=== PATIENT | female | born 1995 | race Caucasian/White ===

== ENCOUNTER 2018-08-12 06:18 | Emergency (ER) | payer OTHER ==
[2018-08-12] MEDS ORDERED: NS 1,000 ML IV ONE (06:58)
[2018-08-12] MEDS ORDERED: KETOROLAC 30 MG/1 ML SDV IVP ONE (06:58)
[2018-08-12] MEDS ORDERED: ONDANSETRON 4 MG/2 ML VIAL IVP ONE (06:58)
--- NOTE | 2018-08-12 07:05 | EDPHY ---
H & P Stated Complaint: fainted, lip lac Time Seen by Provider: 08/12/18 06:42 - Personal History LMP (Females 10-55): 1-7 Days Ago Current Tetanus Diphtheria and Acellular Pertussis (TDAP): Yes - Medical/Surgical History Hx Asthma: No Hx Chronic Respiratory Disease: No Hx Diabetes: No Hx Cardiac Disease: No Hx Renal Disease: No Hx Cirrhosis: No Hx Alcoholism: No Hx HIV/AIDS: No Hx Splenectomy or Spleen Trauma: No Other PMH: enies - Social History Smoking Status: Never smoked Constitutional: Initial Vital Signs Temperature (C) 36.3 C 08/12/18 06:22 Heart Rate 77 08/12/18 06:22 Respiratory Rate 20 08/12/18 06:22 Blood Pressure 96/65 L 08/12/18 06:22 O2 Sat (%) 99 08/12/18 06:22 O2 Delivery Mode Nasal Cannula Allergies/Adverse Reactions: No Known Allergies Allergy (Unverified 08/12/18 06:21) Home Medications: Medication Instructions Recorded Doxycycline Calcium 08/12/18 Medical Decision Making - Diagnostics Imaging Results: Imaging Impressions Abdomen/Pelvis Ultrasound 08/12/18 06:58 Impression: Normal renal ultrasound. Findings discussed with Jeffrey Garrett MD 08/12/2018 at 8:27. Imaging: Discussed imaging studies w/ crew caller Radiologist ED Course/Re-evaluation: CHIEF COMPLAINT: Syncope, lip laceration HISTORY OF PRESENT ILLNESS: This patient is a healthy 23 year old female who presents today with facial lacerations secondary to a syncopal episode and fall earlier today. She woke this morning with left flank pain. She went to the restroom and while sitting on the toilet, she felt lightheaded and nauseous. She got up quickly to vomit, and the next thing she remembers is waking on the floor. She was able to get up and her roommate brought her here today for evaluation. She struck her face when she fell and sustained a laceration through the center of her lip through and through. She denies headache or vomiting. She does endorse some neck pain. Her left flank pain is ongoing. She denies fever, chest pain, shortness of breath, urinary complaints including dysuria or hematuria. REVIEW OF SYSTEMS: A comprehensive 10 system review of systems is otherwise negative aside from elements mentioned in the history of present illness and medical decision making. PHYSICAL EXAM: HR, BP, O2 Sat, RR. Temp noted General Appearance: Alert, well hydrated, appropriate, and non-toxic appearing. Head: Laceration through the center of the top lip involving the mucosa and leonor borer, extending internally to the gum line. 1cm laceration to columnella. Small abrasion lateral to left eye. Eyes: Pupils equal, round, reactive to light and accommodation, EOMI, no trauma , no injection. Ears: Clear bilaterally, no perforation, normal landmarks Nose: Dried blood in right nares. No evidence of septal hematoma. Throat: There is no erythema or exudates, no lesions, normal tonsils, mucus membranes moist. Neck: Supple, nontender, no lymphadenopathy. Respiratory: No retractions, no distress, no wheezes, and no accessory muscle use. Lungs are clear to auscultation bilaterally. Cardiovascular: Regular rate and rhythm, no murmurs, rubs, or gallops. Bilateral carotid, radial, dorsalis pedis, and posterior tibial pulses intact. Good capillary refill all extremities. Gastrointestinal: Abdomen is soft, nontender, non-distended, no masses, no rebound, no guarding, no peritoneal signs. Musculoskeletal: Normal active ROM of all extremities, atraumatic. Neurological: Alert, appropriate, and interactive. The patient has normal DTRs and non-focal cranial nerves, motor, sensory, and cerebellar exam. Skin: No rashes, good turgor, no nodules on palpation. Past medical history: Denies Past surgical history: Noncontributory. Family history: Noncontributory. Social history: Friend at bedside. DIAGNOSTICS/PROCEDURES/CRITICAL CARE TIME: Procedure: Laceration repair. Verbal consent was obtained from the patient. The linear 3cm laceration on the upper lip mucosa, leonor border involved, and the 1cm laceration to the columnella were anesthetized using 1% lidocaine with epinephrine with an intraoral block of the upper lip. The wound was cleaned with standard ED protocol, draped and explored to its base with a gloved finger. The wound required extensive revision of flaps. The wound was repaired in multiple layer technique with 12 5-0 chromic gut sutures. The wound repair was complex. The procedure was performed by myself, Dr. Garrett. Procedure: Laceration repair. Verbal consent was obtained from the patient. The stellate 1cm laceration lateral to the left eye was cleaned with standard ED protocol. The wound was repaired with Dermabond. The wound repair was simple. The procedure was performed by myself, Dr. Garrett. DIFFERENTIAL DIAGNOSIS: The differential diagnosis for the patient's flank pain included but was not limited to musculoskeletal causes, kidney stone, pyelonephritis, shingles, diverticulitis, appendicitis, and aortic aneurysm. The differential diagnosis for the patient's syncope included but was not limited to vasovagal syncope, arrhythmia, dehydration, cardiogenic causes, neurogenic causes, and blood loss. MEDICAL DECISION MAKIN23 y/o female presents with facial and lip lacerations secondary to a syncopal event this morning. On exam, she has a laceration through the center of the top lip involving the mucosa and leonor borer, extending internally to the gum line. She also has a 1cm laceration to the columnella and a small abrasion lateral to her left eye. IV established, plan for I-stat chemistries. Plan to administer 30mg IV Ketorolac, 4mg IV Zofran, 1L IV NS for symptom relief. Plan for US left kidney. Plan for suture repair under standard ED protocol. See procedure note above. Administered 0.5mg IV Dilaudid for additional pain relied. 08:00 The patient tolerated the procedure well. Renal US will be completed at this time. 08:[address] Dumont, radiologist. Left renal ultrasound negative for acute processes. 08:30 Reassessed, discussed imaging and laboratory results. The patient is currently feeling well. She declines CT at this time as she is currently completely asymptomatic. Plan to discharge home in good condition. Follow up and return precautions discussed. She will return in 5 days for suture removal. UA is pending at this time, but if this is negative, plan to d/c patient as above. 09:00 UA negative for UTI. Reassessed patient, discussed additional results. She continues to feel well. Plan to discharge home as above. She will return for any worsening of condition or further concerns. She is comfortable with this plan. - Data Points Laboratory Results: Laboratory Results 08/12/18 07:00 08/12/18 Unknown 08/12/18 08/12/18 08/12/18 Unknown 08:12 07:07 WBC RBC Hgb POC Hgb 13.9 gm/dL gm/dL (12.6-16.3) Hct POC Hct 41 % % (38-47) MCV MCH MCHC RDW Plt Count MPV Neut % (Auto) Lymph % (Auto) Rolette % (Auto) Eos % (Auto) Baso % (Auto) Nucleat RBC Rel Count Absolute Neuts (auto) Absolute Lymphs (auto) Absolute Monos (auto) Absolute Eos (auto) Absolute Basos (auto) Absolute Nucleated RBC Immature Gran % Immature Gran # POC Sodium 142 mEq/L mEq/L (135-145) Sodium 140 mEq/L mEq/L (135-145) POC Potassium 3.6 mEq/L mEq/L (3.3-5.0) Potassium 4.1 mEq/L mEq/L (3.3-5.0) POC Chloride 105 mEq/L mEq/L (97-110) Chloride 105 mEq/L mEq/L (97-110) Carbon Dioxide 25 mEq/l mEq/l (22-31) Anion Gap 10 mEq/L mEq/L (6-14) POC BUN 16 mg/dL mg/dL (7-23) BUN 18 mg/dL mg/dL (7-23) Creatinine 0.9 mg/dL mg/dL (0.6-1.0) POC Creatinine 0.9 mg/dL mg/dL (0.6-1.0) Estimated GFR > 60 Glucose 115 mg/dL H mg/dL (70-100) POC Glucose 115 mg/dL H mg/dL (70-100) Calcium 9.7 mg/dL mg/dL (8.5-10.4) Total Bilirubin 3.5 mg/dL H mg/dL (0.1-1.4) Conjugated Bilirubin 0.0 mg/dL mg/dL (0.0-0.5) Unconjugated Bilirubin 3.5 mg/dL H mg/dL (0.0-1.1) AST 22 IU/L IU/L (14-46) ALT 23 IU/L IU/L (9-52) Alkaline Phosphatase 56 IU/L IU/L (38-126) Total Protein 7.2 g/dL g/dL (6.3-8.2) Albumin 4.1 g/dL g/dL (3.5-5.0) Lipase 47 IU/L IU/L (23-300) Urine Color YELLOW Urine Appearance HAZY Urine pH 5.0 (5.0-7.5) Ur Specific [place] 1.023 (1.002-1.030) Urine Protein 1+ H (NEGATIVE) Urine Ketones NEGATIVE (NEGATIVE) Urine Blood NEGATIVE (NEGATIVE) Urine Nitrate NEGATIVE (NEGATIVE) Urine Bilirubin NEGATIVE (NEGATIVE) Urine Urobilinogen NEGATIVE EU EU (0.2-1.0) Ur Leukocyte Esterase NEGATIVE (NEGATIVE) Urine RBC 1-3 /hpf /hpf (0-3) Urine WBC 1-3 /hpf /hpf (0-3) Ur Epithelial Cells TRACE /lpf /lpf (NONE-1+) Granular Casts 5-15 /lpf /lpf (0-1) Urine Mucus 3+ /lpf H /lpf (NONE-1+) Urine Glucose NEGATIVE (NEGATIVE) 08/12/18 07:00 WBC 7.02 10^3/uL 10^3/uL (3.80-9.50) RBC 4.56 10^6/uL 10^6/uL (4.18-5.33) Hgb 13.6 g/dL g/dL (12.6-16.3) POC Hgb Hct 40.2 % % (38.0-47.0) POC Hct MCV 88.2 fL fL (81.5-99.8) MCH 29.8 pg pg (27.9-34.1) MCHC 33.8 g/dL g/dL (32.4-36.7) RDW 11.9 % % (11.5-15.2) Plt Count 249 10^3/uL 10^3/uL (150-400) MPV 10.4 fL fL (8.7-11.7) Neut % (Auto) 58.0 % % (39.3-74.2) Lymph % (Auto) 33.9 % % (15.0-45.0) Rolette % (Auto) 6.4 % % (4.5-13.0) Eos % (Auto) 0.7 % % (0.6-7.6) Baso % (Auto) 0.6 % % (0.3-1.7) Nucleat RBC Rel Count 0.0 % % (0.0-0.2) Absolute Neuts (auto) 4.07 10^3/uL 10^3/uL (1.70-6.50) Absolute Lymphs (auto) 2.38 10^3/uL 10^3/uL (1.00-3.00) Absolute Monos (auto) 0.45 10^3/uL 10^3/uL (0.30-0.80) Absolute Eos (auto) 0.05 10^3/uL 10^3/uL (0.03-0.40) Absolute Basos (auto) 0.04 10^3/uL 10^3/uL (0.02-0.10) Absolute Nucleated RBC 0.00 10^3/uL 10^3/uL (0-0.01) Immature Gran % 0.4 % % (0.0-1.1) Immature Gran # 0.03 10^3/uL 10^3/uL (0.00-0.10) POC Sodium Sodium POC Potassium Potassium POC Chloride Chloride Carbon Dioxide Anion Gap POC BUN BUN Creatinine POC Creatinine Estimated GFR Glucose POC Glucose Calcium Total Bilirubin Conjugated Bilirubin Unconjugated Bilirubin AST ALT Alkaline Phosphatase Total Protein Albumin Lipase Urine Color Urine Appearance Urine pH Ur Specific [place] Urine Protein Urine Ketones Urine Blood Urine Nitrate Urine Bilirubin Urine Urobilinogen Ur Leukocyte Esterase Urine RBC Urine WBC Ur Epithelial Cells Granular Casts Urine Mucus Urine Glucose Medications Given: Discontinued Medications Hydromorphone HCl (Dilaudid) 0.5 mg IVP EDNOW ONE Stop: 08/12/18 07:39 Last Admin: 08/12/18 07:43 Dose: 0.5 mg Sodium Chloride (Ns) 1,000 mls @ 0 mls/hr IV EDNOW ONE; Wide Open PRN Reason: Protocol Stop: 08/12/18 06:59 Last Admin: 08/12/18 07:43 Dose: 1,000 mls Ketorolac Tromethamine (Toradol) 30 mg IVP EDNOW ONE Stop: 08/12/18 06:59 Last Admin: 08/12/18 07:44 Dose: 30 mg Ondansetron HCl (Zofran) 4 mg IVP EDNOW ONE Stop: 08/12/18 06:59 Last Admin: 08/12/18 07:44 Dose: 4 mg Point of Care Test Results: Chemistry 08/12/18 07:07 POC Sodium 142 mEq/L mEq/L (135-145) POC Potassium 3.6 mEq/L mEq/L (3.3-5.0) POC Chloride 105 mEq/L mEq/L (97-110) POC BUN 16 mg/dL mg/dL (7-23) POC Creatinine 0.9 mg/dL mg/dL (0.6-1.0) POC Glucose 115 mg/dL H mg/dL (70-100) ISTAT H&H 08/12/18 07:07 POC Hgb 13.9 gm/dL gm/dL (12.6-16.3) POC Hct 41 % % (38-47) Departure - Departure Disposition: Home, Routine, Self-Care Clinical Impression: Lip laceration Qualifiers: Encounter type: initial encounter Qualified Code(s): S01.511A - Laceration without foreign body of lip, initial encounter Facial laceration Qualifiers: Encounter type: initial encounter Qualified Code(s): S01.81XA - Laceration without foreign body of other part of head, initial encounter Syncope Qualifiers: Syncope type: vasovagal syncope Qualified Code(s): R55 - Syncope and collapse Condition: Good Instructions: Care For Your Stitches (ED), Syncope (ED), Flank Pain (ED), Facial Laceration (ED) Additional Instructions: 1. Return to the Emergency Department in 5 days for suture removal. Apply sunscreen every day for the next year to prevent discoloration of your skin as we discussed. 2. Return to the Emergency Department for fever, redness, discharge from wound, increasing pain or other worsening of condition. 3. Return for returning or increasing flank pain, vomiting, fever, difficulty urinating, or other worsening of condition. 4. Follow up with Dr. Beltran, oral surgeon, for further concerns regarding your teeth. Referrals: Smiley Mariee MD [Medical Doctor] - As per Instructions Jose Beltran DDS [Doctor of Dental Surgery] - As per Instructions Stand Alone Forms: Work Excuse Report Scribed for: Jeffrey Garrett Report Scribed by: Leana Corey Date of Report: 08/12/18 Time of Report: 08:17
[2018-08-12] MEDS ORDERED: HYDROmorphONE/DILAUDID 1 MG/ML INJ ONE (07:13)
[2018-08-12] MEDS ORDERED: SKIN ADHESIVE (DERMABOND) 1 EACH TP ONE (07:25)
[2018-08-12 07:32] LABS: PLATELET COUNT 249 10^3/uL (150-400)
[2018-08-12] MEDS ORDERED: HYDROmorphONE/DILAUDID 2 MG/ML INJ IVP ONE (07:38)
[2018-08-12 09:11] VITALS: BP 114/64
== END 2018-08-12 09:13 | disposition home or self-care (01) ==
DX: R55 Syncope and collapse (principal); S01.511A Laceration without foreign body of lip, initial encounter; S01.21XA Laceration without foreign body of nose, initial encounter; S01.81XA Laceration without foreign body of other part of head, initial encounter; W19.XXXA Unspecified fall, initial encounter; Y93.E8 Activity, other personal hygiene; Y92.214 College as the place of occurrence of the external cause; E86.9 Volume depletion, unspecified; R10.9 Unspecified abdominal pain
CPT/HCPCS: 82435-PO; 82565-PO; 82947-PO; 84132-PO; 84295-PO; 84520-PO; 85014-PO; 96374; J1170; J1885; J2405